=== PATIENT | female | born 2000 | race African-American/Black ===

== ENCOUNTER 2022-01-20 09:40 | Emergency (ER) | payer SELFPAY ==
[~2022-01-20] VITALS: Ht 167.6 cm; Wt 68.0 kg
[2022-01-20 11:39] LABS: BASOPHILS % 0.6 % (0.0-2.0); EOSINOPHILS % 1.1 % (0.0-5.0); HEMATOCRIT. 39.8 % (36.0-48.0); HEMOGLOBIN. 13.3 g/dL (12.0-16.0); LYMPHOCYTES % 10.9 % (20.0-50.0); MEAN CORPUSCULAR HEMOGLOBIN 29.1 pg (28.0-32.0); MEAN CORPUSCULAR VOLUME 87.2 fL (81.0-99.0); MEAN PLATELET VOLUME 7.5 fl (7.4-10.4); MONOCYTES % 10.1 % (2.0-8.0); NEUTROPHILS % 77.3 % (40.0-76.0); PLATELET 317 x1000/uL (130-400); RED BLOOD CELL COUNT 4.57 mill/uL (4.2-5.4)
[2022-01-20 11:54] LABS: CHLORIDE 107 mEq/L (98-107)
[2022-01-20 11:55] LABS: HCG SCREEN NEGATIVE
[2022-01-20 12:01] LABS: ETHANOL BLOOD < 10 mg/dL
[2022-01-20 12:31] LABS: CLARITY URINE CLOUDY (CLEAR); COLOR URINE YELLOW (YELLOW); KETONES URINE 1+ (NEGATIVE); LEUKOCYTE ESTERASE URINE 2+ (NEGATIVE); NITRITE URINE NEGATIVE (NEGATIVE); OCCULT BLOOD URINE NEGATIVE (NEGATIVE); PH URINE 6.5 (4.5-8.0); PROTEIN URINE TRACE (NEGATIVE); SPECIFIC GRAVITY URINE 1.023 (1.005-1.030)
[2022-01-20 13:18] LABS: *AMPHETAMINES SCREEN URINE NEGATIVE (NEGATIVE); *BARBITURATES SCREEN URINE NEGATIVE (NEGATIVE); *BENZODIAZEPINES SCREEN URINE NEGATIVE (NEGATIVE); *COCAINE SCREEN URINE NEGATIVE (NEGATIVE); METHADONE URINE SCREEN NEGATIVE (NEGATIVE); OPIATES URINE SCREEN NEGATIVE (NEGATIVE); PHENCYCLIDINE URINE SCREEN NEGATIVE (NEGATIVE)
[2022-01-20 13:32] LABS: CANNABINOID URINE SCREEN PRESUMTIVE POSITIVE (NEGATIVE)
[2022-01-20] MEDS: BUSPIRONE HCL 5MG TABLET PO SCH ×2 (16:21→20:58)
[2022-01-20] MEDS: ARIPIPRAZOLE 5MG TABLET PO SCH (16:21)
[2022-01-20] MEDS: FLUOXETINE HCL 10 MG CAPSULE PO SCH (16:22)
[2022-01-20] MEDS: CEPHALEXIN 250MG CAPSULE PO SCH ×3 (16:22→20:58)
[2022-01-21 08:20] VITALS: BP 113/77
[2022-01-21] MEDS: FLUOXETINE HCL 10 MG CAPSULE PO SCH (08:27)
[2022-01-21] MEDS: CEPHALEXIN 250MG CAPSULE PO SCH (08:27)
[2022-01-21] MEDS: ARIPIPRAZOLE 5MG TABLET PO SCH (08:27)
[2022-01-21] MEDS: BUSPIRONE HCL 5MG TABLET PO SCH (08:28)
[2022-01-21] MEDS ORDERED: CEPH250C2 MT (10:31)
== END 2022-01-21 11:33 | disposition home or self-care (01) ==
LOC: ER 09:51
DX: R45.851 Suicidal ideations (principal); N39.0 Urinary tract infection, site not specified; R44.0 Auditory hallucinations; Z20.822 Contact with and (suspected) exposure to COVID-19
CPT/HCPCS: 36415; 80053; 80305; 80307; 80320; 80329; 81003; 81025; 84703; 85025; 87086; 87426; 99285; C9803; U0003; U0005; G0480